=== PATIENT | male | born 1950 | race Caucasian/White ===

== ENCOUNTER 2020-03-20 15:43 | Inpatient (IN) | payer MEDICARE, OTHER ==
[~2020-03-20] VITALS: Ht 175.3 cm; Wt 63.5 kg
--- NOTE | 2020-03-20 16:01 | NUR ---
LIMITTED INFO ON MED HX, NO INFO ON MEDS. PT SOMNOLENT.
[2020-03-20 16:21] LABS: ABG BASE EXCESS -1.3 mmol/L; ABG HCO3 21.9 mmol/L; ABG PCO2 31.9 mmHg (35.0-45.0); ABG PH 7.454 (7.350-7.450); ABG PO2 107.8 mmHg (75.0-100.0); ABG SITE RIGHT RADIAL; ABG TOTAL HEMOGLOBIN 11.7 G/dL (13.5-18.0); COHb 1.2 % (0.5-1.5); MetHb 0.3 % (0.0-1.5); O2Hb 96.7 % (94.0-97.0)
[2020-03-20 16:45] LABS: BASOPHILS % (AUTO) 0.2 % (0.0-2.0); EOSINOPHILS % (AUTO) 0.1 % (0.0-7.0); HEMATOCRIT 33.8 % (36.7-47.1); HEMOGLOBIN 11.2 g/dL (12.5-16.3); LYMPHOCYTES # (AUTO) 1.5 K/uL (20.0-40.0); LYMPHOCYTES % (AUTO) 30.4 % (20.5-51.5); MEAN CORPUSCULAR HEMOGLOBIN 33.4 uug (23.8-33.4); MEAN CORPUSCULAR HGB CONC 33 g/dL (32.5-36.3); MEAN CORPUSCULAR VOLUME 101.2 fL (73.0-96.2); MONOCYTES # (AUTO) 0.2 K/uL (2.0-10.0); MONOCYTES % (AUTO) 5.1 % (0.0-11.0); NEUTROPHILS # (AUTO) 3.1 K/uL (1.8-8.9); NEUTROPHILS % (AUTO) 64.2 % (38.5-71.5); PLATELET COUNT (AUTO) 136 K/uL (152-348); RED BLOOD CELL COUNT(AUTO) 3.34 MIL/uL (4.06-5.63); WHITE BLOOD COUNT (AUTO) 4.9 K/uL (3.6-10.2)
[2020-03-20] MEDS ORDERED: levoFLOXacin 750 MG/D5W 150 ML PIGGYBACK IV ONE (16:45)
--- NOTE | 2020-03-20 17:02 | NUR ---
talked to pt daughter over the phone.
[2020-03-20 17:07] LABS: CREATININE 1.1 mg/dL (0.6-1.3); POTASSIUM 3.5 mmol/L (3.5-5.1)
[2020-03-20] MEDS ORDERED: DEXAMETHASONE SOD PHOSPHATE 4 MG INJ IV ONE (17:30)
[2020-03-20] MEDS ORDERED: levoFLOXacin 750MG/D5W 150 ML IV ONE (17:33)
[2020-03-20 17:36] LABS: BILIRUBIN,TOTAL 0.3 mg/dL (0.2-1.0); TOTAL PROTEIN, SERUM 5.9 g/dL (6.4-8.2)
[2020-03-20] MEDS ORDERED: DEXAMETHASONE SOD PHOSPHATE 10 MG INJ ONE (17:39)
[2020-03-20] MEDS ORDERED: ENOXAPARIN SODIUM 60 MG/0.6 ML DISP.SYRIN SQ ONE (17:45)
[2020-03-20] MEDS ORDERED: ENOXAPARIN SODIUM 40 MG/0.4 ML DISP.SYRIN SQ SCH (18:00)
[2020-03-20] MEDS ORDERED: ACETAMINOPHEN 325 MG TABLET PO PRN (18:00)
[2020-03-20] MEDS ORDERED: levoFLOXacin 500 MG/D5W 500 MG in PREMIXED 1 EACH IV SCH (18:00)
[2020-03-20] MEDS ORDERED: Z GUARD REMEDY PASTE 57 GM TUBE TOP PRN (18:00)
[2020-03-20] MEDS ORDERED: HYDROCODONE/APAP 5-325MG TABLET PO PRN (18:00)
[2020-03-20] MEDS ORDERED: MAGNESIUM HYDROXIDE 30 ML LIQUID UDC PO PRN (18:00)
[2020-03-20] MEDS ORDERED: ONDANSETRON 4 MG/2 ML VIAL IV PRN (18:00)
[2020-03-20] MEDS ORDERED: IV NORMAL SALINE 1000 ML BAG IV ONE (18:15)
[2020-03-20] MEDS ORDERED: ENOXAPARIN SODIUM 80 MG/0.8 ML DISP.SYRIN SQ ONE (18:22)
--- NOTE | 2020-03-20 18:41 | NUR ---
ER spoke to Dr Bahman pt to be admitted to [facility]. No beds available at this time.
--- NOTE | 2020-03-20 18:55 | NUR ---
Midline RN place midline on LUE. Pt tolorated well.
[2020-03-20] MEDS ORDERED: CARB200T PO ×2 (18:58)
[2020-03-20] MEDS ORDERED: TAMS-3 PO (18:58)
[2020-03-20] MEDS ORDERED: OXYB10TA4 PO (18:58)
--- NOTE | 2020-03-20 19:18 | NUR ---
Handsoff report given to Loreto CARDONA
--- NOTE | 2020-03-20 19:30 | NUR ---
Patient noted resting in bed, vitals WNL, all needs met at this time
--- NOTE | 2020-03-21 00:02 | NUR ---
Per Dr. Miguel, patient will be downgraded to [facility], but there are still no available beds/nurses upstairs.
--- NOTE | 2020-03-21 01:34 | NUR ---
Patient repositioned in bed, vitals stable
--- NOTE | 2020-03-21 02:27 | NUR ---
Patient noted resting in bed
--- NOTE | 2020-03-21 05:30 | NUR ---
96% on 15 liters nonrebreather mask, no changes noted this time, vitals WNL to baseline
[2020-03-21] MEDS: PANTOPRAZOLE SODIUM 40 MG TABLET.DR PO SCH (07:00)
--- NOTE | 2020-03-21 07:10 | NUR ---
Recieved pt from Loreto CARDONA, noted to be on 02 via NRB at 15. Pt noted to be contracted and on padded SR.
[2020-03-21] MEDS ORDERED: DEXAMETHASONE SOD PHOSPHATE 4 MG INJ ONE (08:16)
[2020-03-21] MEDS: DEXAMETHASONE SOD PHOSPHATE 4 MG INJ IV SCH (08:17)
--- NOTE | 2020-03-21 08:28 | NUR ---
Noted pt to not be able tolerate PO. Paged [facility] for oncall phsyician for maintence IVF, per [facility] it is Dr. Goel. Recieved call from Dr. Goel, stated she is not prescriptionist and it is Dr. Miguel. Dr. Oliver in hospital and stated he would put in my request for maintenance IVF.
--- NOTE | 2020-03-21 09:05 | NUR ---
Recieved call from Dr. Miguel, gave TO of D51/2NS at 75ml/hr
--- NOTE | 2020-03-21 12:00 | NUR ---
Pt in [facility]. Remains on 15L02 via NRB mask. No accessory muscle use noted. Will continue to monitor.
[2020-03-21 14:53] LABS: BASOPHILS % (AUTO) 0.1 % (0.0-2.0); HEMATOCRIT 32.5 % (36.7-47.1); LYMPHOCYTES # (AUTO) 0.9 K/uL (20.0-40.0); LYMPHOCYTES % (AUTO) 14.1 % (20.5-51.5); MEAN CORPUSCULAR HEMOGLOBIN 33.7 uug (23.8-33.4); MEAN CORPUSCULAR HGB CONC 34 g/dL (32.5-36.3); MONOCYTES # (AUTO) 0.2 K/uL (2.0-10.0); MONOCYTES % (AUTO) 3.7 % (0.0-11.0); NEUTROPHILS # (AUTO) 5.4 K/uL (1.8-8.9); NEUTROPHILS % (AUTO) 82.1 % (38.5-71.5); PLATELET COUNT (AUTO) 145 K/uL (152-348); RED BLOOD CELL COUNT(AUTO) 3.25 MIL/uL (4.06-5.63); WHITE BLOOD COUNT (AUTO) 6.6 K/uL (3.6-10.2)
[2020-03-21 15:31] LABS: CREATININE 0.8 mg/dL (0.6-1.3); MAGNESIUM 2.5 mg/dL (1.8-2.4); PHOSPHOROUS 2.6 mg/dL (2.5-4.9); POTASSIUM 4.1 mmol/L (3.5-5.1)
[2020-03-21 15:42] LABS: THYROID STIMULATING HORMONE 1.008 mIU/mL (0.358-3.740)
--- NOTE | 2020-03-21 16:49 | NUR ---
attempted to give report, was informed that Mirella is admitting another patient at this time, and she would call back.
--- NOTE | 2020-03-21 17:00 | NUR ---
pt transported via gurney on , 15L via NRB mask. No incident noted during transfer.
--- NOTE | 2020-03-21 17:31 | NUR ---
Report given to [place] BRENDAN
[2020-03-21 17:55] VITALS: BP 117/42
--- NOTE | 2020-03-21 18:45 | NUR ---
Patient in distress. O2 at 15L/NRB with O2 sat of 85%. Rapid response called. RT to place patient on [place]. Endorsed for further care
--- NOTE | 2020-03-21 18:53 | NUR ---
ADMISSION NOTE: Received this 69 year old male patient from the ER with a diagnosis of COVID+. Received patient in visible distress. He is having severe shortness of breath, he is grunting and gasping for air. Patient is in visible respiratory distress. Patient admitted on a 15 L non-rebreather mask. He is unable to answer questions due to acute distress. He is only able to shake his head "yes" when asked what his name is but is unable to answer all other questions.
--- NOTE | 2020-03-21 19:45 | NUR ---
PATIENT AWAKE VERBALLY RESPONSIVE, ON NON REBREATHER MASK AT 15 LITERS, SAT 88-92%, PATIENT ON DROPLET PRECAUTION, CONT TO MONITOR.
[2020-03-21 20:06] VITALS: BP 101/56
[2020-03-21 21:00] VITALS: BP 132/59
[2020-03-21] MEDS: IV D5 1/2 NS 1000 ML 1,000 ML IV PRN (21:00)
[2020-03-21] MEDS ORDERED: REMDESIVIR (CHARGED) 200 MG in IV NORMAL SALINE 210 ML IV ONE (21:00)
--- NOTE | 2020-03-21 21:19 | NUR ---
PATIENT AWAKE ON NON REBREATHER MASK AT 15LITERS OF OXYGEN, SAT 91-92%,, STARTED RENDESIVER IV ORDERED WITH NO ADVERSE REACTION NOTED AT THIS TIME, PATIENT HAS NON PRODUCTIVE COUGH, CONT TO MONITOR.
[2020-03-21 21:45] VITALS: BP 124/64
[2020-03-21 22:22] VITALS: BP 121/67
[2020-03-21] MEDS: ENOXAPARIN SODIUM 40 MG/0.4 ML DISP.SYRIN SQ SCH (22:35)
[2020-03-21] MEDS: levoFLOXacin 500 MG/D5W 500 MG in PREMIXED 1 EACH IV SCH (22:35)
--- NOTE | 2020-03-21 22:58 | NUR ---
PATIENT HAS NO S/S OF ADVERSE REACTION NOTED FROM RENDISIVER IV CONT TO MONITOR.
[2020-03-22] VITALS (45 sets, daily range): BP systolic 64–161; BP diastolic 42–103
--- NOTE | 2020-03-22 02:20 | NUR ---
Patient arrived via hospital bed transport from [facility] 3rd floor, Vitals: 115/66, 39 respirations, 97% on 100% high flow nasal cannula, 40 liters/min, shallow/rapid breathing noted, 93 HR, no complaints at this time, patient is alert and able to follow commands, side rails up in place x2, hooked up to monitor
--- NOTE | 2020-03-22 02:39 | NUR ---
PATIENT TRANSFER TO CCU UNIT IN FAIR CONDITION, REPORT GIVEN TO CATRACHITA CARDONA.
[2020-03-22] MEDS: PANTOPRAZOLE SODIUM 40 MG TABLET.DR PO SCH (07:00)
--- NOTE | 2020-03-22 07:20 | NUR ---
Received report from radiator specialist nurse, patient in bed on high flow oxygen, sinus rhythm on the monitor, hemodynamically stable, with fever of 100.8. Patient responds with his name only. Bed in low position, side rails upx2. all alarms checked will continue to monitor.
[2020-03-22] MEDS: DEXAMETHASONE SOD PHOSPHATE 4 MG INJ IV SCH (08:14)
[2020-03-22 09:00] LABS: BILIRUBIN,DIRECT 0.2 mg/dL (0.0-0.2); BILIRUBIN,TOTAL 0.4 mg/dL (0.2-1.0); CREATININE 0.9 mg/dL (0.6-1.3); MAGNESIUM 2.3 mg/dL (1.8-2.4); PHOSPHOROUS 1.9 mg/dL (2.5-4.9); TOTAL PROTEIN, SERUM 5.7 g/dL (6.4-8.2)
[2020-03-22 09:06] LABS: BASOPHILS % (AUTO) 0.1 % (0.0-2.0); EOSINOPHILS % (AUTO) 0.1 % (0.0-7.0); HEMOGLOBIN 10.9 g/dL (12.5-16.3); LYMPHOCYTES % (AUTO) 14.5 % (20.5-51.5); MEAN CORPUSCULAR HGB CONC 34 g/dL (32.5-36.3); MEAN CORPUSCULAR VOLUME 99.5 fL (73.0-96.2); MONOCYTES # (AUTO) 0.3 K/uL (2.0-10.0); MONOCYTES % (AUTO) 5.2 % (0.0-11.0); NEUTROPHILS # (AUTO) 5.4 K/uL (1.8-8.9); NEUTROPHILS % (AUTO) 80.1 % (38.5-71.5); PLATELET COUNT (AUTO) 151 K/uL (152-348); RED BLOOD CELL COUNT(AUTO) 3.22 MIL/uL (4.06-5.63); WHITE BLOOD COUNT (AUTO) 6.7 K/uL (3.6-10.2)
[2020-03-22] MEDS: ACETAMINOPHEN 650 MG SUPP.RECT RC PRN (09:13)
[2020-03-22] MEDS ORDERED: PANTOPRAZOLE SODIUM 40 MG VIAL IV SCH (10:15)
[2020-03-22] MEDS: NOREPINEPHRINE BITARTRATE 32 MG in IV NORMAL SALINE 218 ML IV PRN (12:04)
[2020-03-22 12:28] LABS: ABG BASE EXCESS -1.2 mmol/L; ABG HCO3 21.7 mmol/L; ABG PCO2 30.1 mmHg (35.0-45.0); ABG PH 7.475 (7.350-7.450); ABG PO2 56.7 mmHg (75.0-100.0); ABG SITE RIGHT RADIAL; COHb 1.2 % (0.5-1.5); MetHb 0.3 % (0.0-1.5); O2Hb 89.3 % (94.0-97.0); VENT MODE HF - Aquinox
--- NOTE | 2020-03-22 12:35 | NUR ---
Notified Dr. Rodríguez that HR is dropping into the 40's, and desaturation. ABG ordered at this time and possible intubation may be needed.
[2020-03-22] MEDS: FAMOTIDINE. 20 MG/2 ML VIAL IV SCH ×2 (12:55→20:35)
[2020-03-22] MEDS ORDERED: ATROPINE SULFATE 1 MG/10 ML DISP.SYRIN ONE (13:11)
[2020-03-22] MEDS: PROPOFOL 100 ML IV PRN ×4 (13:21→21:07)
--- NOTE | 2020-03-22 13:30 | NUR ---
Pt orally intubated with 7.5 ETT @ 23cm lip line. Pt placed on Brink vent with ordered settings of A/C-16, VT-450, PEEP+5, FIO2-100%. Good color change on Capnography. Sxn'd and lavaged for small amount of yellowish secretions. Sputum sent to lab. Vent plugged into red emergency outlet. Bag/valve/mask at bedside. Vent alarm parameters checked, on and audible. Will continue to monitor.
[2020-03-22] MEDS: IV D5 1/2 NS 1000 ML 1,000 ML IV PRN (14:54)
[2020-03-22] MEDS ORDERED: SODIUM PHOSPHATE MM 15 MMOL in IV NORMAL SALINE 250 ML IV ONE (17:00)
--- NOTE | 2020-03-22 17:05 | NUR ---
Contacted Dr. Fortune to ask for increase in propofol as patient is still awake and agitated pulling at et tube.
[2020-03-22] MEDS ORDERED: NEUTRA PHOS PACKET NG ONE (18:00)
[2020-03-22] MEDS: REMDESIVIR (CHARGED)100 MG in IV NORMAL SALINE 250 ML IV SCH (18:26)
--- NOTE | 2020-03-22 19:17 | NUR ---
Contacted Dr. Monroy about bradycardic episodes, no new orders at this time.
[2020-03-22] MEDS: levoFLOXacin 500 MG/D5W 500 MG in PREMIXED 1 EACH IV SCH (19:57)
--- NOTE | 2020-03-22 20:00 | NUR ---
ON LEVOPHED DRIP @ 0.14, TITRATED DOWN ACCDG TO BP PARAMETER.
--- NOTE | 2020-03-22 20:00 | NUR ---
RECEIVED PT. ORALLY INTUBATED W/ SETTINGS OF AC-16, TV-450, FIO2-100%, PEEP-+5 W/ O2 SAT OF 98%. ON DIPRIVAN DRIP @ 60MCQ/KG/MIN ON R HAND. IVF NS @ 75 CC/HR. ON RAC. AFEBRLE. REPOSITIONED W/ HOB ELEVATED.
[2020-03-22] MEDS: ENOXAPARIN SODIUM 40 MG/0.4 ML DISP.SYRIN SQ SCH (20:35)
[2020-03-23] VITALS (77 sets, daily range): BP systolic 83–122; BP diastolic 45–73
[2020-03-23] MEDS: PROPOFOL 100 ML IV PRN ×5 (01:35→22:07)
--- NOTE | 2020-03-23 04:00 | NUR ---
AM CARE DONE. ORAL CARE DONE. REPOSITIONED W/ HOB ELEVATED.
[2020-03-23] MEDS: IV D5 1/2 NS 1000 ML 1,000 ML IV PRN ×2 (05:55→20:08)
--- NOTE | 2020-03-23 07:25 | NUR ---
Received report from retail shift leader nurse, patient in bed sedated on propofol 50mcg/kg/min, iv fluids infusing and levophed at 0.04mcg/kg/min. Sinus rhythm on the monitor, oxygen saturation 78% noted with good wave. Patient is afebrile. conti in place draining nyasia colored urine.
[2020-03-23 07:46] LABS: ABG BASE EXCESS -2.3 mmol/L; ABG HCO3 22.4 mmol/L; ABG PCO2 38.6 mmHg (35.0-45.0); ABG PH 7.382 (7.350-7.450); ABG SITE RIGHT RADIAL; ABG TOTAL HEMOGLOBIN 12.2 G/dL (13.5-18.0); COHb 0.9 % (0.5-1.5); MetHb 0.3 % (0.0-1.5); O2Hb 97.3 % (94.0-97.0); VENT MODE VENT - A/C 16; VT, ABG 450 mL
[2020-03-23] MEDS: FAMOTIDINE. 20 MG/2 ML VIAL IV SCH ×2 (08:01→20:13)
[2020-03-23] MEDS: DEXAMETHASONE SOD PHOSPHATE 4 MG INJ IV SCH (08:01)
[2020-03-23 15:47] LABS: BASOPHILS % (AUTO) 0.1 % (0.0-2.0); EOSINOPHILS % (AUTO) 0.1 % (0.0-7.0); HEMATOCRIT 32.4 % (36.7-47.1); HEMOGLOBIN 10.9 g/dL (12.5-16.3); LYMPHOCYTES # (AUTO) 0.5 K/uL (20.0-40.0); LYMPHOCYTES % (AUTO) 5.7 % (20.5-51.5); MEAN CORPUSCULAR HEMOGLOBIN 33.7 uug (23.8-33.4); MEAN CORPUSCULAR HGB CONC 34 g/dL (32.5-36.3); MEAN CORPUSCULAR VOLUME 100.5 fL (73.0-96.2); MONOCYTES # (AUTO) 0.3 K/uL (2.0-10.0); MONOCYTES % (AUTO) 3.7 % (0.0-11.0); NEUTROPHILS # (AUTO) 7.5 K/uL (1.8-8.9); NEUTROPHILS % (AUTO) 90.4 % (38.5-71.5); PLATELET COUNT (AUTO) 127 K/uL (152-348); RED BLOOD CELL COUNT(AUTO) 3.23 MIL/uL (4.06-5.63); WHITE BLOOD COUNT (AUTO) 8.3 K/uL (3.6-10.2)
[2020-03-23 15:52] LABS: BILIRUBIN,DIRECT 0.2 mg/dL (0.0-0.2); BILIRUBIN,TOTAL 0.4 mg/dL (0.2-1.0); CREATININE 0.7 mg/dL (0.6-1.3); MAGNESIUM 2.4 mg/dL (1.8-2.4); PHOSPHOROUS 2.4 mg/dL (2.5-4.9); POTASSIUM 4.2 mmol/L (3.5-5.1); TOTAL PROTEIN, SERUM 5.2 g/dL (6.4-8.2)
[2020-03-23] MEDS: levoFLOXacin 500 MG/D5W 500 MG in PREMIXED 1 EACH IV SCH (17:35)
[2020-03-23] MEDS: VITAL AF 1.2 1,000 ML LIQUID GT PRN (17:38)
[2020-03-23] MEDS: REMDESIVIR (CHARGED)100 MG in IV NORMAL SALINE 250 ML IV SCH (18:23)
--- NOTE | 2020-03-23 18:41 | NUR ---
Patient continues to be sedated on propofol 50mcg/kg/min during intubation with ett 7.5, tv 450 fio2 60% peep 5, a/c 22, sinus rhythm on the monitor, tachypneic, afebrile this shift. Patient started on tube feeding vital af 1/2 @ 30cc/hr. conti draining 500cc/urine, appears to be comfortable. No distress noted throughout shift.
--- NOTE | 2020-03-23 20:00 | NUR ---
Report received. Patient orally intubated and to mechanical ventilator with same settings. On isolation for COVID-19. Assessment done; refer to flow sheet for complete data.
[2020-03-23] MEDS: ENOXAPARIN SODIUM 40 MG/0.4 ML DISP.SYRIN SQ SCH (20:13)
[2020-03-23] MEDS ORDERED: MORPHINE SULFATE 2 MG/1 ML DISP.SYRIN IM PRN (21:15)
[2020-03-24] VITALS (29 sets, daily range): BP systolic 87–105; BP diastolic 45–59
[2020-03-24] MEDS: PROPOFOL 100 ML IV PRN ×5 (02:26→21:48)
[2020-03-24 03:36] LABS: *COLOR,URINE YELLOW (YELLOW); *KETONES,URINE NEGATIVE (NEGATIVE); *UROBILINOGEN,URINE 0.2 E.U./dl (NORMAL); LEUKOCYTE ESTERASE ,URINE NEGATIVE (NEGATIVE); NITRITE, URINE NEGATIVE (NEGATIVE); PH,URINE 5.5 (5.0-8.0); UGLUCOSE NEGATIVE (NEGATIVE)
[2020-03-24 03:38] LABS: *BILIRUBIN,URIN 1+ (NEGATIVE); *BLOOD, URINE TRACE (NEGATIVE)
[2020-03-24 03:39] LABS: *CLARITY,URINE HAZY (CLEAR)
[2020-03-24 03:57] LABS: BACTERIA,URINE NONE SEEN /HPF (NONE SEEN); MUCUS,URINE FEW /LPF (0-FEW); SQUAMOUS EPITHELIAL CELL,UR FEW /HPF (NONE SEEN); WBC,URINE 0-3 /HPF (0-3)
--- NOTE | 2020-03-24 05:00 | NUR ---
Nephew called; claims he's an MD. Advised to call patient's daughter for information.
[2020-03-24 05:20] LABS: EOSINOPHILS # (AUTO) 0.1 K/uL (0.0-0.7); EOSINOPHILS % (AUTO) 0.7 % (0.0-7.0); HEMATOCRIT 30.8 % (36.7-47.1); HEMOGLOBIN 10.5 g/dL (12.5-16.3); LYMPHOCYTES # (AUTO) 0.8 K/uL (20.0-40.0); LYMPHOCYTES % (AUTO) 9.5 % (20.5-51.5); MEAN CORPUSCULAR HEMOGLOBIN 34.1 uug (23.8-33.4); MEAN CORPUSCULAR HGB CONC 34 g/dL (32.5-36.3); MEAN CORPUSCULAR VOLUME 100.2 fL (73.0-96.2); MONOCYTES # (AUTO) 0.3 K/uL (2.0-10.0); MONOCYTES % (AUTO) 3.1 % (0.0-11.0); NEUTROPHILS # (AUTO) 7.3 K/uL (1.8-8.9); NEUTROPHILS % (AUTO) 86.7 % (38.5-71.5); PLATELET COUNT (AUTO) 110 K/uL (152-348); RED BLOOD CELL COUNT(AUTO) 3.08 MIL/uL (4.06-5.63); WHITE BLOOD COUNT (AUTO) 8.4 K/uL (3.6-10.2)
[2020-03-24 05:35] LABS: BILIRUBIN,DIRECT 0.2 mg/dL (0.0-0.2); BILIRUBIN,TOTAL 0.4 mg/dL (0.2-1.0); CREATININE 0.8 mg/dL (0.6-1.3); POTASSIUM 3.7 mmol/L (3.5-5.1)
[2020-03-24 05:36] LABS: MAGNESIUM 2.2 mg/dL (1.8-2.4); PHOSPHOROUS 2.1 mg/dL (2.5-4.9)
[2020-03-24] MEDS: FAMOTIDINE. 20 MG/2 ML VIAL IV SCH (09:01)
[2020-03-24 09:10] LABS: ABG BASE EXCESS -3.3 mmol/L; ABG PCO2 27.8 mmHg (35.0-45.0); ABG PH 7.453 (7.350-7.450); ABG PO2 49.3 mmHg (75.0-100.0); ABG SITE RIGHT RADIAL; VENT MODE VENT - A/C; VT, ABG 450 mL
--- NOTE | 2020-03-24 09:23 | NUR ---
Spoke with Malia (daughter) and stated that it was okay for Dr. Delgado (her cousin) to receive info regarding pt's condition.
[2020-03-24] MEDS: DEXAMETHASONE SOD PHOSPHATE 4 MG INJ IV SCH (09:57)
[2020-03-24] MEDS: CARBAMAZEPINE 200 MG TABLET NG SCH ×2 (10:54→20:38)
[2020-03-24] MEDS: TAMSULOSIN HCL 0.4 MG CAP.SR.24H PO SCH (11:48)
[2020-03-24] MEDS ORDERED: OXYBUTYNIN XL 5 MG TABSR PO SCH (12:00)
[2020-03-24] MEDS ORDERED: NEUTRA PHOS PACKET NG ONE (12:00)
--- NOTE | 2020-03-24 14:59 | NUR ---
Dr. Fortune here to see pt. Full report given. New orders received.
[2020-03-24] MEDS: OXYBUTYNIN CHLORIDE 5 MG TABLET GT SCH ×2 (15:10→20:46)
[2020-03-24 16:18] LABS: A/G RATIO 0.8 (0.7-1.7); ALBUMIN 2.2 g/dL (2.9-4.4); ALPHA-1-GLOBULIN 0.4 g/dL (0.0-0.4); ALPHA-2-GLOBULIN 0.8 g/dL (0.4-1.0); BETA GLOBULIN 0.9 g/dL (0.7-1.3); GAMMA GLOBULIN 0.7 g/dL (0.4-1.8); GLOBULIN, TOTAL 2.8 g/dL (2.2-3.9); M-SPIKE Not Observed g/dL (Not Observed)
[2020-03-24] MEDS: levoFLOXacin 500 MG/D5W 500 MG in PREMIXED 1 EACH IV SCH (17:30)
[2020-03-24] MEDS: ACETAMINOPHEN 650 MG SUPP.RECT RC PRN (18:22)
[2020-03-24] MEDS: REMDESIVIR (CHARGED)100 MG in IV NORMAL SALINE 250 ML IV SCH (18:59)
[2020-03-24] MEDS: FAMOTIDINE 20 MG TABLET NG SCH (20:38)
[2020-03-24] MEDS: ENOXAPARIN SODIUM 40 MG/0.4 ML DISP.SYRIN SQ SCH (20:39)
[2020-03-25] VITALS (24 sets, daily range): BP systolic 94–120; BP diastolic 49–73
[2020-03-25] MEDS: IV D5 1/2 NS 1000 ML 1,000 ML IV PRN ×2 (00:43→14:22)
[2020-03-25] MEDS: PROPOFOL 100 ML IV PRN ×3 (03:06→16:59)
[2020-03-25 05:31] LABS: EOSINOPHILS # (AUTO) 0.1 K/uL (0.0-0.7); EOSINOPHILS % (AUTO) 0.5 % (0.0-7.0); HEMATOCRIT 31.3 % (36.7-47.1); HEMOGLOBIN 10.8 g/dL (12.5-16.3); LYMPHOCYTES # (AUTO) 0.6 K/uL (20.0-40.0); LYMPHOCYTES % (AUTO) 6.2 % (20.5-51.5); MEAN CORPUSCULAR HEMOGLOBIN 34.4 uug (23.8-33.4); MEAN CORPUSCULAR HGB CONC 35 g/dL (32.5-36.3); MEAN CORPUSCULAR VOLUME 99.1 fL (73.0-96.2); MONOCYTES # (AUTO) 0.4 K/uL (2.0-10.0); MONOCYTES % (AUTO) 3.7 % (0.0-11.0); NEUTROPHILS # (AUTO) 9.2 K/uL (1.8-8.9); NEUTROPHILS % (AUTO) 89.6 % (38.5-71.5); PLATELET COUNT (AUTO) 88 K/uL (152-348); RED BLOOD CELL COUNT(AUTO) 3.16 MIL/uL (4.06-5.63); WHITE BLOOD COUNT (AUTO) 10.3 K/uL (3.6-10.2)
[2020-03-25 05:50] LABS: BILIRUBIN,DIRECT 0.2 mg/dL (0.0-0.2); BILIRUBIN,TOTAL 0.5 mg/dL (0.2-1.0); CREATININE 0.8 mg/dL (0.6-1.3); PHOSPHOROUS 2.2 mg/dL (2.5-4.9); POTASSIUM 3.8 mmol/L (3.5-5.1); TOTAL PROTEIN, SERUM 4.9 g/dL (6.4-8.2)
--- NOTE | 2020-03-25 07:29 | NUR ---
Spoke with berry Ortega about canceled labs, she will f/u.
[2020-03-25 07:53] LABS: ABG BASE EXCESS -1.3 mmol/L; ABG HCO3 21.9 mmol/L; ABG PCO2 31.7 mmHg (35.0-45.0); ABG PH 7.457 (7.350-7.450); ABG PO2 50.7 mmHg (75.0-100.0); ABG SITE LEFT RADIAL; ABG TOTAL HEMOGLOBIN 11.9 G/dL (13.5-18.0); COHb 0.8 % (0.5-1.5); MetHb 0.3 % (0.0-1.5); O2Hb 86.4 % (94.0-97.0); VENT MODE VENT - A/C; VT, ABG 450 mL
--- NOTE | 2020-03-25 08:30 | NUR ---
SEDATION VACATION DONE,PT. DID NOT TOLERATED, BECAME TACHYPNEIC,ALARMING ON VENT.DIPRIVAN RESTARTED.
[2020-03-25] MEDS: OXYBUTYNIN CHLORIDE 5 MG TABLET GT SCH ×2 (08:42→21:30)
[2020-03-25] MEDS: TAMSULOSIN HCL 0.4 MG CAP.SR.24H PO SCH (08:42)
[2020-03-25] MEDS: DEXAMETHASONE SOD PHOSPHATE 4 MG INJ IV SCH (08:42)
[2020-03-25] MEDS: FAMOTIDINE 20 MG TABLET NG SCH ×2 (08:42→21:29)
[2020-03-25] MEDS: CARBAMAZEPINE 200 MG TABLET NG SCH ×2 (08:43→21:30)
[2020-03-25] MEDS: LORAZEPAM 2 MG/1 ML VIAL IV PRN ×2 (08:49→14:30)
[2020-03-25] MEDS: VITAL AF 1.2 1,000 ML LIQUID GT PRN (08:57)
[2020-03-25] MEDS ORDERED: OXYBUTYNIN XL 5 MG TABSR PO SCH (09:00)
[2020-03-25] MEDS ORDERED: MORPHINE SULFATE 2 MG/1 ML DISP.SYRIN IV PRN (09:00)
[2020-03-25] MEDS ORDERED: SODIUM PHOSPHATE MM 15 MMOL in IV NORMAL SALINE 250 ML IV ONE (12:00)
--- NOTE | 2020-03-25 12:00 | NUR ---
PT.WAS SEEN BY SAMANTA LOMBARDO MD WITH NEW ORDERS
--- NOTE | 2020-03-25 12:10 | NUR ---
RT MD ORDER VENT CHANGES PEEP +10. FIO2 WAS TITRATED DOWN TO 90% VENT CHANGES DONE RN AWARE PT TOLERATING WELL. WILL CONTINUE TO MONITOR AND TITRATED FIO2 .
[2020-03-25 13:35] LABS: BAND % (MANUAL) 3 % (0-10); EOSINOPHILS % (MANUAL) 1 % (0-8); LYMPHOCYTES % (MANUAL) 9 % (20-40); MONOCYTES % (MANUAL) 4 % (2-10); NEUTROPHILS % (MANUAL) 83 % (42-75)
--- NOTE | 2020-03-25 14:10 | NUR ---
RT FIO2 TITRATED DOWN TO 80% AT THIS TIME. SPO2 97% NO DISTRESS NOTED. WILL CONTINUE TO MONITOR PT.
--- NOTE | 2020-03-25 15:58 | NUR ---
PT.WAS SEEN BY ALBERTO GALE NP
[2020-03-25] MEDS: levoFLOXacin 500 MG/D5W 500 MG in PREMIXED 1 EACH IV SCH (16:34)
[2020-03-25] MEDS: REMDESIVIR (CHARGED)100 MG in IV NORMAL SALINE 250 ML IV SCH (18:02)
--- NOTE | 2020-03-25 18:30 | NUR ---
NO CHANGES IN PT.CONDITION,NO S/S OF ACUTE DISTRESS.
--- NOTE | 2020-03-25 19:00 | NUR ---
received patient sedated , on diprivan at 30 mcg , iv of d5 1/2 ns at 75 ml , ngt vital af at 30 ml , placement check and verified 10 ml residual noted , no fevr , no seizure noted vent settings of ac 16 tv 450 p 10 fio2 of 80 %
[2020-03-25 19:57] LABS: *CREATININE,URINE 205.5 mg/dL (30-125); *URINE TOTAL PROTEIN RANDOM 256.9 mg/dL (<150/24HR)
--- NOTE | 2020-03-25 21:00 | NUR ---
talked to daughter , given an updates and medications running with the patient
[2020-03-25] MEDS: ENOXAPARIN SODIUM 40 MG/0.4 ML DISP.SYRIN SQ SCH (21:30)
[2020-03-26] VITALS (54 sets, daily range): BP systolic 67–161; BP diastolic 18–88
[2020-03-26] MEDS: PROPOFOL 100 ML IV PRN ×5 (01:09→21:47)
--- NOTE | 2020-03-26 06:00 | NUR ---
patient is restless and cool to touch , diprivan is incresed to 50 mch , vent settings are the same , ngt feeding is clamped per order x 22 off at 6am , on at 10 am , no residual , placement checked , no fever , no seizure noted ,
[2020-03-26] MEDS: IV D5 1/2 NS 1000 ML 1,000 ML IV PRN (06:27)
[2020-03-26 08:09] LABS: BASOPHILS % (AUTO) 0.1 % (0.0-2.0); EOSINOPHILS % (AUTO) 0.4 % (0.0-7.0); HEMATOCRIT 34.2 % (36.7-47.1); HEMOGLOBIN 11.8 g/dL (12.5-16.3); LYMPHOCYTES # (AUTO) 0.6 K/uL (20.0-40.0); LYMPHOCYTES % (AUTO) 5.9 % (20.5-51.5); MEAN CORPUSCULAR HEMOGLOBIN 34.4 uug (23.8-33.4); MEAN CORPUSCULAR HGB CONC 35 g/dL (32.5-36.3); MEAN CORPUSCULAR VOLUME 99.6 fL (73.0-96.2); MONOCYTES # (AUTO) 0.3 K/uL (2.0-10.0); MONOCYTES % (AUTO) 3.3 % (0.0-11.0); NEUTROPHILS # (AUTO) 8.9 K/uL (1.8-8.9); NEUTROPHILS % (AUTO) 90.3 % (38.5-71.5); PLATELET COUNT (AUTO) 70 K/uL (152-348); RED BLOOD CELL COUNT(AUTO) 3.43 MIL/uL (4.06-5.63); WHITE BLOOD COUNT (AUTO) 9.8 K/uL (3.6-10.2)
[2020-03-26 08:17] LABS: BILIRUBIN,DIRECT 0.3 mg/dL (0.0-0.2); BILIRUBIN,TOTAL 0.7 mg/dL (0.2-1.0); CREATININE 0.9 mg/dL (0.6-1.3); MAGNESIUM 1.9 mg/dL (1.8-2.4); PHOSPHOROUS 2.5 mg/dL (2.5-4.9); POTASSIUM 3.8 mmol/L (3.5-5.1)
--- NOTE | 2020-03-26 08:30 | NUR ---
patient is tachypneic, tachycardiac, checked temperature skin is hot to touch axillary temp was 99.7. patient given tylenol, increased propofol. Feeding off and suctioned small amount of tube feed from ET and orally.
[2020-03-26 08:45] LABS: ABG BASE EXCESS -4.1 mmol/L; ABG HCO3 20.4 mmol/L; ABG PCO2 35.5 mmHg (35.0-45.0); ABG PH 7.377 (7.350-7.450); ABG PO2 45.5 mmHg (75.0-100.0); ABG SITE RIGHT RADIAL; ABG TOTAL HEMOGLOBIN 12.9 G/dL (13.5-18.0); COHb 1.3 % (0.5-1.5); MetHb 0.2 % (0.0-1.5); VENT MODE VENT - A/C; VT, ABG 450 mL
[2020-03-26] MEDS: FAMOTIDINE 20 MG TABLET NG SCH ×2 (09:24→21:21)
[2020-03-26] MEDS: DEXAMETHASONE SOD PHOSPHATE 4 MG INJ IV SCH (09:24)
[2020-03-26] MEDS: CARBAMAZEPINE 200 MG TABLET NG SCH ×2 (09:25→21:19)
[2020-03-26] MEDS: TAMSULOSIN HCL 0.4 MG CAP.SR.24H PO SCH (09:26)
[2020-03-26] MEDS: OXYBUTYNIN CHLORIDE 5 MG TABLET GT SCH ×2 (09:26→21:17)
[2020-03-26] MEDS: ACETAMINOPHEN 650 MG SUPP.RECT RC PRN (09:34)
--- NOTE | 2020-03-26 10:00 | NUR ---
Patient vomited moderate amount brown and otoole colored.
[2020-03-26] MEDS: NOREPINEPHRINE BITARTRATE 32 MG in IV NORMAL SALINE 218 ML IV PRN (10:44)
[2020-03-26] MEDS: IV D5/ 0.9% NACL 1,000 ML IV PRN (10:56)
--- NOTE | 2020-03-26 12:00 | NUR ---
patient is now SR, satuarting 97-100%, and is breathing at rate of 24.
--- NOTE | 2020-03-26 13:00 | NUR ---
Bruno nephrology in the unit to see patient.
[2020-03-26] MEDS ORDERED: levoFLOXacin 500 MG TABLET GT SCH (18:00)
--- NOTE | 2020-03-26 18:30 | NUR ---
dr hodges in the unit from ER to place right upper chest tube. verified consent from doctor Jordan who spoke to the abd informed Nilda via phone that chest tube to be placed. Addendum: 03/26/20 at 2012 by SPENCER CHAMBERLAIN RN error note is for a different patient
--- NOTE | 2020-03-26 19:53 | NUR ---
radiology dr. branham called to report slight reexpansion of the right lung but noted subcutanoues air and required to reposition. called ER physician and dr. hodges still in the hospital and reported that. dr hodges was to call radiology to verify repositioning. Addendum: 03/26/20 at 2012 by SPENCER CHAMBERLAIN RN error. note is for a different patient
[2020-03-26] MEDS: ENOXAPARIN SODIUM 40 MG/0.4 ML DISP.SYRIN SQ SCH (21:12)
[2020-03-27] VITALS (71 sets, daily range): BP systolic 77–162; BP diastolic 34–90
[2020-03-27] MEDS: IV D5/ 0.9% NACL 1,000 ML IV PRN ×2 (01:38→15:05)
--- NOTE | 2020-03-27 07:10 | NUR ---
received report from top carrier nurse, patient in bed on air mattress sinus rhythm on the monitor, on yojana vent with ett 7.5 25cm, tv 430, ac 16, peep 12. Patient is on levophed 0.06 titrating up for optimal BP control. conti draining, oxygen saturation 98%. Bed in low position, side rails upx2.
[2020-03-27] MEDS: PROPOFOL 100 ML IV PRN ×4 (07:36→22:01)
[2020-03-27] MEDS: CARBAMAZEPINE 200 MG TABLET NG SCH ×2 (08:18→21:07)
[2020-03-27] MEDS: FAMOTIDINE 20 MG TABLET NG SCH ×2 (08:18→21:07)
[2020-03-27] MEDS: OXYBUTYNIN CHLORIDE 5 MG TABLET GT SCH ×2 (08:18→21:07)
[2020-03-27] MEDS: TAMSULOSIN HCL 0.4 MG CAP.SR.24H PO SCH (08:18)
[2020-03-27] MEDS: DEXAMETHASONE SOD PHOSPHATE 4 MG INJ IV SCH (08:18)
[2020-03-27 09:01] LABS: BASOPHILS % (AUTO) 0.1 % (0.0-2.0); EOSINOPHILS % (AUTO) 0.3 % (0.0-7.0); HEMATOCRIT 34.4 % (36.7-47.1); HEMOGLOBIN 11.4 g/dL (12.5-16.3); LYMPHOCYTES # (AUTO) 0.2 K/uL (20.0-40.0); LYMPHOCYTES % (AUTO) 1.9 % (20.5-51.5); MEAN CORPUSCULAR HEMOGLOBIN 33.5 uug (23.8-33.4); MEAN CORPUSCULAR HGB CONC 33 g/dL (32.5-36.3); MEAN CORPUSCULAR VOLUME 101.1 fL (73.0-96.2); MONOCYTES # (AUTO) 0.2 K/uL (2.0-10.0); MONOCYTES % (AUTO) 2.2 % (0.0-11.0); NEUTROPHILS # (AUTO) 9.9 K/uL (1.8-8.9); NEUTROPHILS % (AUTO) 95.5 % (38.5-71.5); WHITE BLOOD COUNT (AUTO) 10.4 K/uL (3.6-10.2)
[2020-03-27 09:15] LABS: CREATININE 0.9 mg/dL (0.6-1.3); MAGNESIUM 2.3 mg/dL (1.8-2.4); PHOSPHOROUS 3.5 mg/dL (2.5-4.9); POTASSIUM 4.5 mmol/L (3.5-5.1)
[2020-03-27 09:31] LABS: ABG BASE EXCESS -4.5 mmol/L; ABG PH 7.297 (7.350-7.450); ABG PO2 60.9 mmHg (75.0-100.0); ABG SITE RIGHT RADIAL; ABG TOTAL HEMOGLOBIN 11.6 G/dL (13.5-18.0); COHb 1.1 % (0.5-1.5); MetHb 0.2 % (0.0-1.5); O2Hb 88.4 % (94.0-97.0); VENT MODE VENT - A/C; VT, ABG 450 mL
[2020-03-27 09:56] LABS: PLATELET COUNT (AUTO) 44 K/uL (152-348)
--- NOTE | 2020-03-27 10:07 | NUR ---
reported low platelets to Dr. Rodríguez and andrea orders stopped
[2020-03-27 17:49] LABS: BAND % (MANUAL) 7 % (0-10); LYMPHOCYTES % (MANUAL) 11 % (20-40); METAMYELOCYTES % 2 % (0-1); MONOCYTES % (MANUAL) 1 % (2-10); NEUTROPHILS % (MANUAL) 78 % (42-75)
--- NOTE | 2020-03-27 18:00 | NUR ---
patient in bed on air mattress sinus rhythm on the monitor, on yojana vent with ett 7.5 25cm, tv 430, ac 16, peep 12. Patient is on levophed 0.08 for optimal BP control. conti draining, oxygen saturation 98%. Bed in low position, side rails upx2.
--- NOTE | 2020-03-27 18:01 | NUR ---
Notified dr tejada of patients HIT diagnosis from cardiology, and TATI page, orders received to change levaquin to IV.
[2020-03-27 18:35] LABS: BILIRUBIN,DIRECT 0.6 mg/dL (0.0-0.2); BILIRUBIN,TOTAL 0.8 mg/dL (0.2-1.0); TOTAL PROTEIN, SERUM 5.3 g/dL (6.4-8.2)
--- NOTE | 2020-03-27 20:00 | NUR ---
Started Argatroban 2mcg/kg/min based on a 63kg weight. aPTT draw @0000 and @0400
[2020-03-27] MEDS: ARGATROBAN IV PRN ×2 (20:13→22:11)
[2020-03-27] MEDS: NORMAL SALINE IV PRN ×2 (20:13→22:11)
[2020-03-27] MEDS: levoFLOXacin 500 MG/D5W 500 MG in PREMIXED 1 EACH IV SCH (20:57)
[2020-03-27] MEDS: NOREPINEPHRINE BITARTRATE 8 MG in IV NORMAL SALINE 242 ML IV PRN (22:19)
[2020-03-28] VITALS (55 sets, daily range): BP systolic 82–129; BP diastolic 38–80
[2020-03-28] MEDS: PROPOFOL 100 ML IV PRN ×5 (03:23→23:47)
[2020-03-28] MEDS: IV D5/ 0.9% NACL 1,000 ML IV PRN ×2 (07:04→22:13)
[2020-03-28 07:47] LABS: CREATININE 0.7 mg/dL (0.6-1.3); POTASSIUM 4.9 mmol/L (3.5-5.1)
[2020-03-28 07:50] LABS: MAGNESIUM 2.4 mg/dL (1.8-2.4); PHOSPHOROUS 3.1 mg/dL (2.5-4.9)
[2020-03-28 08:06] LABS: BASOPHILS % (AUTO) 0.1 % (0.0-2.0); HEMATOCRIT 28.6 % (36.7-47.1); HEMOGLOBIN 9.5 g/dL (12.5-16.3); LYMPHOCYTES # (AUTO) 0.6 K/uL (20.0-40.0); LYMPHOCYTES % (AUTO) 4.7 % (20.5-51.5); MEAN CORPUSCULAR HEMOGLOBIN 33.4 uug (23.8-33.4); MEAN CORPUSCULAR HGB CONC 33 g/dL (32.5-36.3); MEAN CORPUSCULAR VOLUME 100.6 fL (73.0-96.2); MONOCYTES # (AUTO) 0.3 K/uL (2.0-10.0); MONOCYTES % (AUTO) 2.8 % (0.0-11.0); NEUTROPHILS # (AUTO) 11.1 K/uL (1.8-8.9); NEUTROPHILS % (AUTO) 92.4 % (38.5-71.5); RED BLOOD CELL COUNT(AUTO) 2.84 MIL/uL (4.06-5.63)
[2020-03-28 08:24] LABS: ABG BASE EXCESS -2.8 mmol/L; ABG HCO3 22.7 mmol/L; ABG PCO2 42.6 mmHg (35.0-45.0); ABG PH 7.345 (7.350-7.450); ABG PO2 64.5 mmHg (75.0-100.0); ABG SITE LEFT RADIAL; ABG TOTAL HEMOGLOBIN 10.7 G/dL (13.5-18.0); MetHb 0.3 % (0.0-1.5); O2Hb 91.1 % (94.0-97.0); VENT MODE VENT - A/C; VT, ABG 430 mL
[2020-03-28] MEDS: TAMSULOSIN HCL 0.4 MG CAP.SR.24H PO SCH (08:43)
[2020-03-28] MEDS: CARBAMAZEPINE 200 MG TABLET NG SCH ×2 (08:43→20:59)
[2020-03-28] MEDS: FAMOTIDINE 20 MG TABLET NG SCH ×2 (08:43→20:58)
[2020-03-28] MEDS: OXYBUTYNIN CHLORIDE 5 MG TABLET GT SCH ×2 (08:43→20:59)
[2020-03-28] MEDS: DEXAMETHASONE SOD PHOSPHATE 4 MG INJ IV SCH (08:43)
[2020-03-28] MEDS: ARGATROBAN IV PRN (09:47)
[2020-03-28] MEDS: NORMAL SALINE IV PRN (09:47)
[2020-03-28] MEDS ORDERED: NORMAL SALINE IV PRN (12:00)
[2020-03-28] MEDS ORDERED: ARGATROBAN IV PRN (12:00)
[2020-03-28 16:27] LABS: PLATELET COUNT (AUTO) 31 K/uL (152-348)
[2020-03-28 16:56] LABS: IRON, SERUM 42 ug/dL (50-175)
[2020-03-28 17:02] LABS: *RHEUMATOID FACTOR SCREEN NEGATIVE (NEGATIVE)
[2020-03-28] MEDS: levoFLOXacin 500 MG/D5W 500 MG in PREMIXED 1 EACH IV SCH (18:27)
--- NOTE | 2020-03-28 19:38 | NUR ---
Spoke to Dr. Mayberry; informed of patient's condition including bleeding from NGT and ETT as per report. Gave order to DC Argatroban infusion and give FFP.
[2020-03-28] MEDS: NOREPINEPHRINE BITARTRATE 8 MG in IV NORMAL SALINE 242 ML IV PRN (20:34)
--- NOTE | 2020-03-28 21:20 | NUR ---
Patient's daughter Malia called; updated of patient's condition. Consent for transfusion obtained via phone.
[2020-03-28 23:11] LABS: BAND % (MANUAL) 7 % (0-10); LYMPHOCYTES % (MANUAL) 4 % (20-40); MONOCYTES % (MANUAL) 8 % (2-10); NEUTROPHILS % (MANUAL) 81 % (42-75)
[2020-03-29] VITALS (39 sets, daily range): BP systolic 82–145; BP diastolic 39–71
--- NOTE | 2020-03-29 00:02 | NUR ---
1st unit of FFP started via ALINA PICC line. Temp= 97.9; Duc hugger turned off.
--- NOTE | 2020-03-29 01:53 | NUR ---
1st unit of FFP completed without problems. Am bath given. Patient desaturates easily during care and turning.
[2020-03-29] MEDS: LORAZEPAM 2 MG/1 ML VIAL IV PRN ×3 (02:34→21:46)
[2020-03-29] MEDS: PROPOFOL 100 ML IV PRN ×3 (04:08→18:49)
--- NOTE | 2020-03-29 04:16 | NUR ---
2nd unit of FFPs completed; no untoward reactions.
[2020-03-29 05:05] LABS: BASOPHILS % (AUTO) 0.2 % (0.0-2.0); EOSINOPHILS % (AUTO) 0.1 % (0.0-7.0); HEMATOCRIT 24.1 % (36.7-47.1); LYMPHOCYTES # (AUTO) 0.5 K/uL (20.0-40.0); MEAN CORPUSCULAR HEMOGLOBIN 33.7 uug (23.8-33.4); MEAN CORPUSCULAR HGB CONC 33 g/dL (32.5-36.3); MEAN CORPUSCULAR VOLUME 101.2 fL (73.0-96.2); MONOCYTES # (AUTO) 0.4 K/uL (2.0-10.0); MONOCYTES % (AUTO) 3.9 % (0.0-11.0); NEUTROPHILS # (AUTO) 9.3 K/uL (1.8-8.9); NEUTROPHILS % (AUTO) 90.8 % (38.5-71.5); WHITE BLOOD COUNT (AUTO) 10.2 K/uL (3.6-10.2)
[2020-03-29 05:16] LABS: RED BLOOD CELL COUNT(AUTO) 2.38 MIL/uL (4.06-5.63)
[2020-03-29 05:17] LABS: PLATELET COUNT (AUTO) 32 K/uL (152-348)
[2020-03-29 05:36] LABS: CREATININE 0.8 mg/dL (0.6-1.3); MAGNESIUM 2.3 mg/dL (1.8-2.4); PHOSPHOROUS 2.7 mg/dL (2.5-4.9); POTASSIUM 4.9 mmol/L (3.5-5.1)
[2020-03-29 08:07] LABS: *IMMUNOGLOBULIN G, SERUM 1088 mg/dL (603-1613); IMMUNOGLOBULIN A, SERUM 344 mg/dL (61-437); IMMUNOGLOBULIN M, SERUM 56 mg/dL (20-172)
[2020-03-29 08:52] LABS: ABG BASE EXCESS -2.8 mmol/L; ABG HCO3 25.3 mmol/L; ABG PCO2 63.5 mmHg (35.0-45.0); ABG PH 7.219 (7.350-7.450); ABG SITE RIGHT RADIAL; ABG TOTAL HEMOGLOBIN 9.1 G/dL (13.5-18.0); COHb 1.5 % (0.5-1.5); MetHb 0.5 % (0.0-1.5); O2Hb 80.2 % (94.0-97.0); VENT MODE VENT - A/C; VT, ABG 430 mL
[2020-03-29] MEDS: OXYBUTYNIN CHLORIDE 5 MG TABLET GT SCH ×2 (09:19→21:27)
[2020-03-29] MEDS: TAMSULOSIN HCL 0.4 MG CAP.SR.24H PO SCH (09:19)
[2020-03-29] MEDS: FAMOTIDINE 20 MG TABLET NG SCH ×2 (09:19→21:27)
[2020-03-29] MEDS: DEXAMETHASONE SOD PHOSPHATE 4 MG INJ IV SCH (09:20)
[2020-03-29] MEDS: CARBAMAZEPINE 200 MG TABLET NG SCH ×2 (09:20→21:27)
[2020-03-29 12:08] LABS: HEPATITIS B SURFACE AB Non Reactive (.); HEPATITIS B SURFACE AG Negative (Negative)
--- NOTE | 2020-03-29 12:28 | NUR ---
doctor nayely in the unit to see patient
--- NOTE | 2020-03-29 13:34 | NUR ---
Dr Mayberry called will draw labs at 1600 and call back for results and plan to transfuse if hemoglobin is less than 8.0
[2020-03-29] MEDS: IV D5/ 0.9% NACL 1,000 ML IV PRN (14:42)
[2020-03-29 15:19] LABS: *ANTI-SCLERODERMA-70 AB <0.2 AI (0.0-0.9); *SJOGREN'S ANTI-SS-A <0.2 AI (0.0-0.9); *SJOGREN'S ANTI-SS-B <0.2 AI (0.0-0.9); *SMITH ANTIBODIES <0.2 AI (0.0-0.9); ANTI-DNA(DS) AB, QN 1 IU/mL (0-9)
[2020-03-29 17:07] LABS: A/G RATIO 0.6 (0.7-1.7); ALBUMIN 1.8 g/dL (2.9-4.4); ALPHA-1-GLOBULIN 0.5 g/dL (0.0-0.4); ALPHA-2-GLOBULIN 0.9 g/dL (0.4-1.0); BETA GLOBULIN 0.6 g/dL (0.7-1.3); M-SPIKE 0.6 g/dL (Not Observed)
[2020-03-29] MEDS: levoFLOXacin 500 MG/D5W 500 MG in PREMIXED 1 EACH IV SCH (17:26)
[2020-03-29 18:28] LABS: BASOPHILS # (AUTO) 0.1 K/uL (0.0-8.0); BASOPHILS % (AUTO) 0.5 % (0.0-2.0); EOSINOPHILS % (AUTO) 0.2 % (0.0-7.0); HEMATOCRIT 29.4 % (36.7-47.1); HEMOGLOBIN 9.3 g/dL (12.5-16.3); LYMPHOCYTES # (AUTO) 0.7 K/uL (20.0-40.0); LYMPHOCYTES % (AUTO) 3.8 % (20.5-51.5); MEAN CORPUSCULAR HEMOGLOBIN 32.9 uug (23.8-33.4); MEAN CORPUSCULAR HGB CONC 32 g/dL (32.5-36.3); MEAN CORPUSCULAR VOLUME 103.9 fL (73.0-96.2); MONOCYTES # (AUTO) 0.6 K/uL (2.0-10.0); MONOCYTES % (AUTO) 3.3 % (0.0-11.0); NEUTROPHILS # (AUTO) 16.2 K/uL (1.8-8.9); NEUTROPHILS % (AUTO) 92.2 % (38.5-71.5); RED BLOOD CELL COUNT(AUTO) 2.83 MIL/uL (4.06-5.63); WHITE BLOOD COUNT (AUTO) 17.6 K/uL (3.6-10.2)
[2020-03-29 18:38] LABS: PLATELET COUNT (AUTO) 35 K/uL (152-348)
[2020-03-29 18:58] LABS: BAND % (MANUAL) 5 % (0-10); LYMPHOCYTES % (MANUAL) 4 % (20-40); MONOCYTES % (MANUAL) 4 % (2-10); NEUTROPHILS % (MANUAL) 87 % (42-75)
[2020-03-29 19:24] LABS: BAND % (MANUAL) 4 % (0-10); LYMPHOCYTES % (MANUAL) 12 % (20-40); MONOCYTES % (MANUAL) 2 % (2-10); NEUTROPHILS % (MANUAL) 82 % (42-75)
--- NOTE | 2020-03-29 19:30 | NUR ---
Report received. Patient COVID positive, orally intubated and to mechanical ventilator settings : XO=057, SPL9=325%, AC=28, PEEP increased from 15cm to 18cm as per MD's order. On Levophed and Diprivan drips via ALINA PICC line. See IV spread sheet for rates and dosages. Assessment done.
--- NOTE | 2020-03-29 21:00 | NUR ---
O2 saturations remains in the 80's with PEEP=18 cm.
[2020-03-29] MEDS: NOREPINEPHRINE BITARTRATE 8 MG in IV NORMAL SALINE 242 ML IV PRN (21:42)
--- NOTE | 2020-03-29 22:25 | NUR ---
Spoke with Dr. Ordonez. Neosynephrine drip ordered. Patient tachycardic and on Levophed drip.
[2020-03-29] MEDS ORDERED: PHENYLEPHRINE IV 50 MG in IV NORMAL SALINE 245 ML IV PRN (22:30)
--- NOTE | 2020-03-29 22:30 | NUR ---
Spoke to patient's daughter Malia; made aware of patient's critical condition.
[2020-03-29] MEDS ORDERED: PHENYLEPHRINE 10 MG/1 ML VIAL ONE (23:05)
[2020-03-30] VITALS (7 sets, daily range): BP systolic 81–100; BP diastolic 44–54
[2020-03-30] MEDS: PROPOFOL 100 ML IV PRN (00:28)
--- NOTE | 2020-03-30 01:35 | NUR ---
Neosynephrine drip started at 0.5 mcg/kg/min. Patient is tachycardic. Will titrate Levophed down as BP permits.
--- NOTE | 2020-03-30 02:50 | NUR ---
Call placed to [facility] re: patient's deteriorating condition. Nely Kaur in home sales consultant. Spoke to patient's daughter Malia; informed of patient's condition.
--- NOTE | 2020-03-30 03:05 | NUR ---
Bradycardic on the monitor. [employer] called; please refer to code blue sheet for ACLS documentation.
[2020-03-30] MEDS ORDERED: ROCURONIUM BROMIDE 50 MG/5 ML VIAL IV ONE (03:24)
[2020-03-30] MEDS ORDERED: ETOMIDATE 20 MG/10 ML VIAL IV ONE (03:24)
--- NOTE | 2020-03-30 03:25 | NUR ---
Code blue efforts unsuccessful; no ROSC. Pronounced by Dr. Kaleb Olivier. Nely Vincent notified. Patient's daughter Malia informed of patient's expiration.
--- NOTE | 2020-03-30 04:00 | NUR ---
Decedent care done. reported to [facility] # [id number] 9spoke to Addendum: 03/30/20 at 0424 by REMIGIO BIGGS RN [facility] # [id number] (spoke to Marina)
--- NOTE | 2020-03-30 04:30 | NUR ---
Spoke to Malia patient's daughter re: patient's belongings and mortuary arrangements. No arrangements have been made yet as per conversation with daughter. No belongings, valuables at bedside or with patient.
== END 2020-03-30 03:25 | disposition expired | DRG 870 ==
LOC: ER 16:01 → TELE3 03-21 16:17 → TELE-TD3 03-21 18:35 → CCU 03-22 02:24
PROVIDERS: ADMIT Student in an Organized Health Care Education/Training Program; ATTEND Nurse Practitioner Acute Care
PROC: 05H533Z Insertion of Infusion Device into Right Subclavian Vein, Percutaneous Approach (ICD-10-PCS; 2020-03-20)
PROC: B546ZZA Ultrasonography of Right Subclavian Vein, Guidance (ICD-10-PCS; 2020-03-20)
PROC: XW033E5 Introduction of Remdesivir Anti-infective into Peripheral Vein, Percutaneous Approach, New Technology Group 5 (ICD-10-PCS; principal; 2020-03-21)
PROC: 5A1955Z Respiratory Ventilation, Greater than 96 Consecutive Hours (ICD-10-PCS; 2020-03-22)
PROC: 0BH17EZ Insertion of Endotracheal Airway into Trachea, Via Natural or Artificial Opening (ICD-10-PCS; 2020-03-22)
PROC: 02HV33Z Insertion of Infusion Device into Superior Vena Cava, Percutaneous Approach (ICD-10-PCS; 2020-03-23)
PROC: B548ZZA Ultrasonography of Superior Vena Cava, Guidance (ICD-10-PCS; 2020-03-23)
PROC: 30233K1 Transfusion of Nonautologous Frozen Plasma into Peripheral Vein, Percutaneous Approach (ICD-10-PCS; 2020-03-29)
PROC: 5A12012 Performance of Cardiac Output, Single, Manual (ICD-10-PCS; 2020-03-30)
PROC: 5A2204Z Restoration of Cardiac Rhythm, Single (ICD-10-PCS; 2020-03-30)
DX: A41.89 Other specified sepsis (principal); U07.1 COVID-19; J12.89 Other viral pneumonia; J96.01 Acute respiratory failure with hypoxia; R65.21 Severe sepsis with septic shock; G93.41 Metabolic encephalopathy; N17.0 Acute kidney failure with tubular necrosis; E44.0 Moderate protein-calorie malnutrition; D61.818 Other pancytopenia; D47.2 Monoclonal gammopathy; D53.9 Nutritional anemia, unspecified; D63.8 Anemia in other chronic diseases classified elsewhere; E11.9 Type 2 diabetes mellitus without complications; E86.0 Dehydration; G40.909 Epilepsy, unspecified, not intractable, without status epilepticus; N40.0 Benign prostatic hyperplasia without lower urinary tract symptoms; K80.20 Calculus of gallbladder without cholecystitis without obstruction; Z68.20 Body mass index [BMI] 20.0-20.9, adult; R74.01 Elevation of levels of liver transaminase levels; R00.1 Bradycardia, unspecified; D75.82 Heparin induced thrombocytopenia (HIT)
CPT/HCPCS: 36415; 36600; 70030-TC; 71045; 76700; 82784; 83550; 83605; 83615; 83735; 83970; 84100; 84155; 84156; 84165; 84300; 84443; 85025; 85520; 85610; 85730; 86038; 86140; 86334; 86430; 86706; 86803; 86850; 86900; 86901; 87040; 87070; 87086; 87340; 87806; 93005; 94002; 94003; A4217; A4663; G0378; J0461; J0883; J1100; J1650; J1956; J2060; J2270; J2370; J3490; J7030; J7042; J7050; P9016-BL; P9017-BL